=== PATIENT | male | born 1950 | race Caucasian/White ===

== ENCOUNTER 2019-09-16 11:33 | Emergency (ER) | payer MEDICARE, BC ==
[~2019-09-16] VITALS: Ht 182.9 cm; Wt 107.5 kg
[2019-09-16] MEDS ORDERED: LIDOCAINE 1% HCL (LOCAL ANESTH.) INJ 20ML MDV ONE (13:48)
[2019-09-16 14:06] LABS: Basophils # (auto) 0 10 ^3/uL (0-0.2); Basophils % (auto) 0.3 % (0.0-2.0); Eosinophils # (auto) 0.2 10 ^3/uL (0-0.8); Eosinophils % (auto) 2.1 % (0.0-7.0); Hematocrit 32.8 % (41.0-53.0); Hemoglobin 10.9 g/dL (13.5-17.5); Lymphocytes # (auto) 1.3 10 ^3/uL (0.4-5.4); Lymphocytes % (auto) 15.2 % (10.0-50.0); Mean Corpuscular Hgb Conc. 33.3 g/dL (32.0-36.0); Mean Corpuscular Volume 86.9 fL (80.0-100.0); Monocytes # (auto) 0.5 10 ^3/uL (0-1.3); Monocytes % (auto) 5.6 % (0.0-12.0); Neutrophils # (auto) 6.5 10 ^3/uL (1.6-8.6); Neutrophils % (auto) 76.8 % (37.0-80.0); Nucleated Red Blood Cells % 0.1 %; Platelet Count (auto) 234 10^3/uL (140-450); Red Blood Cells 3.78 10^6/uL (4.5-5.90); Red Cell Distribution Width 14.4 % (11.8-14.3); White Blood Cell 8.4 10^3/uL (4.4-10.8)
[2019-09-16 14:26] LABS: Alanine Aminotransferase 20 U/L (16-61); Albumin 4.2 g/dL (3.4-5.0); Blood Urea Nitrogen 47 mg/dL (7-18); Calcium 8.7 mg/dL (8.5-10.1); Carbon Dioxide 23 mmol/L (21-32); Glucose 137 mg/dL (74-106)
[2019-09-16 14:31] VITALS: BP 113/72
[2019-09-16 15:35] LABS: Alkaline Phosphatase 51 U/L (45-117); Anion Gap 8 (5-15); BUN/Creatinine Ratio 25.7; Chloride 105 mmol/L (98-107); GFR African American 48 mL/min; GFR Non-African American 40 mL/min; Potassium 4.3 mmol/L (3.5-5.1); Sodium 136 mmol/L (136-145)
[2019-09-16 15:36] LABS: Aspartate Aminotransferase 15 U/L (15-37); Bilirubin, Total 0.7 mg/dL (0.2-1.0); Total Protein 8.1 g/dL (6.4-8.2)
== END 2019-09-16 15:51 | disposition home or self-care (01) ==
LOC: ER 11:33
DX: S01.112A Laceration without foreign body of left eyelid and periocular area, initial encounter (principal); E11.9 Type 2 diabetes mellitus without complications; E78.5 Hyperlipidemia, unspecified; I10 Essential (primary) hypertension; R42 Dizziness and giddiness; X58.XXXA Exposure to other specified factors, initial encounter; Y93.89 Activity, other specified; Y92.89 Other specified places as the place of occurrence of the external cause; Y99.8 Other external cause status
CPT/HCPCS: 12013; 36415; 70450; 70486; 80053; 84484; 85025; 99285; J2001; 93005

== ENCOUNTER 2021-06-29 08:02 | Emergency (ER) | payer MEDICARE, BC ==
[~2021-06-29] VITALS: Ht 182.9 cm; Wt 117.9 kg
[2021-06-29 08:45] VITALS: BP 144/49
[2021-06-29] MEDS ORDERED: CLON0.2T PO (09:11)
== END 2021-06-29 09:19 | disposition home or self-care (01) ==
LOC: ER 08:02
DX: I10 Essential (primary) hypertension (principal); E11.9 Type 2 diabetes mellitus without complications; E78.5 Hyperlipidemia, unspecified; Z76.0 Encounter for issue of repeat prescription

== ENCOUNTER 2021-09-17 16:22 | Emergency (ER) | payer MEDICARE, BC ==
[~2021-09-17] VITALS: Ht 182.9 cm; Wt 90.7 kg
[~2021-09-17 16:22] MED LIST: CLON0.2T PO
[2021-09-17] MEDS ORDERED: CLON0.2T PO (16:54)
[2021-09-17 17:05] VITALS: BP 136/59
== END 2021-09-17 17:00 | disposition home or self-care (01) ==
LOC: ER 16:22
DX: I10 Essential (primary) hypertension (principal); Z76.0 Encounter for issue of repeat prescription

== ENCOUNTER → 2022-01-31 | Emergency (ER) | payer MEDICARE, BC ==
[~2022-01-31] VITALS: Ht 182.9 cm; Wt 270.0 kg
[~2022-01-31] MED LIST changes: +CLON0.2D6 PO; +cloNIDine HCL 0.1 MG TAB PO ONE
[2022-01-31 05:40] VITALS: BP 174/74
[2022-01-31 07:29] LABS: Basophils # (auto) 0.1 10 ^3/uL (0-0.2); Basophils % (auto) 0.9 % (0.0-2.0); Eosinophils # (auto) 0.2 10 ^3/uL (0-0.8); Eosinophils % (auto) 2.6 % (0.0-7.0); Hematocrit 33.4 % (41.0-53.0); Hemoglobin 11.5 g/dL (13.5-17.5); Lymphocytes # (auto) 2.1 10 ^3/uL (0.4-5.4); Lymphocytes % (auto) 27.6 % (10.0-50.0); Mean Corpuscular Hemoglobin 28.4 pg (28.0-32.0); Mean Corpuscular Hgb Conc. 34.3 g/dL (32.0-36.0); Mean Corpuscular Volume 82.7 fL (80.0-100.0); Monocytes # (auto) 0.5 10 ^3/uL (0-1.3); Monocytes % (auto) 6.3 % (0.0-12.0); Neutrophils # (auto) 4.7 10 ^3/uL (1.6-8.6); Neutrophils % (auto) 62.6 % (37.0-80.0); Red Blood Cells 4.04 10^6/uL (4.5-5.90); Red Cell Distribution Width 14.2 % (11.8-14.3); White Blood Cell 7.5 10^3/uL (4.4-10.8)
[2022-01-31 07:48] LABS: Albumin 3.8 g/dL (3.4-5.0); Calcium 8.8 mg/dL (8.5-10.1); Potassium 4.4 mmol/L (3.5-5.1)
[2022-01-31 07:51] LABS: BUN/Creatinine Ratio 27.6; Bilirubin, Total 0.7 mg/dL (0.2-1.0); Total Protein 7.3 g/dL (6.4-8.2)
== END | disposition home or self-care (01) ==
LOC: ER 05:40
DX: I10 Essential (primary) hypertension (principal); E11.65 Type 2 diabetes mellitus with hyperglycemia; E78.5 Hyperlipidemia, unspecified; Z79.899 Other long term (current) drug therapy
CPT/HCPCS: 36415; 80053; 84484; 85025

== ENCOUNTER 2022-07-25 08:54 | Inpatient (IN) | payer MEDICARE, BC ==
[~2022-07-25] VITALS: Ht 182.9 cm; Wt 130.0 kg
[~2022-07-25 08:54] MED LIST changes: -cloNIDine HCL 0.1 MG TAB PO ONE
[2022-07-25 09:45] LABS: Basophils # (auto) 0 10 ^3/uL (0-0.2); Basophils % (auto) 0.2 % (0.0-2.0); Eosinophils # (auto) 0.2 10 ^3/uL (0-0.8); Eosinophils % (auto) 2.7 % (0.0-7.0); Hematocrit 36.2 % (41.0-53.0); Lymphocytes # (auto) 1.7 10 ^3/uL (0.4-5.4); Lymphocytes % (auto) 19.4 % (10.0-50.0); Mean Corpuscular Hemoglobin 27.7 pg (28.0-32.0); Mean Corpuscular Hgb Conc. 33.1 g/dL (32.0-36.0); Mean Corpuscular Volume 83.7 fL (80.0-100.0); Monocytes # (auto) 0.6 10 ^3/uL (0-1.3); Monocytes % (auto) 6.9 % (0.0-12.0); Neutrophils # (auto) 6.1 10 ^3/uL (1.6-8.6); Neutrophils % (auto) 70.8 % (37.0-80.0); Nucleated Red Blood Cells % 0.1 %; Red Blood Cells 4.33 10^6/uL (4.5-5.90); Red Cell Distribution Width 14.9 % (11.8-14.3); White Blood Cell 8.5 10^3/uL (4.4-10.8)
[2022-07-25 10:07] LABS: Potassium 4.1 mmol/L (3.5-5.1)
[2022-07-25 10:19] LABS: Albumin 3.4 g/dL (3.4-5.0); BUN/Creatinine Ratio 18.6 (10.0-20.0); Bilirubin, Total 0.6 mg/dL (0.2-1.0); Calcium 9.5 mg/dL (8.5-10.1); Total Protein 8.3 g/dL (6.4-8.2)
[2022-07-25] MEDS ORDERED: CLINDAMYCIN 600MG IV 50 ML IV ONE (12:30)
[2022-07-25] MEDS ORDERED: PIPERACILLIN-TAZOB 3.375GM 100 ML IV ONE (12:30)
[2022-07-25] MEDS ORDERED: SODIUM CHLORIDE 0.9% 1,000 ML IV SCH (14:00)
[2022-07-25] MEDS ORDERED: DEXTROSE (50%) 50ML SYRG IV PRN (14:00)
[2022-07-25] MEDS ORDERED: VANCOMYCIN PER PHARMACY 0 MG IV SCH (14:00)
[2022-07-25] MEDS ORDERED: ACETAMINOPHEN 325 MG TAB PO PRN (14:00)
[2022-07-25] MEDS ORDERED: hydrALAZINE HCL 20 MG/ML VL IV PRN (14:30)
[2022-07-25 14:47] LABS: Cholesterol 258 mg/dL (< 200); HDL Cholesterol 51 mg/dL (40-59); LDL Cholesterol 166 mg/dL (< 100); Triglycerides 252 mg/dL (< 150)
[2022-07-25] MEDS ORDERED: CLINDAMYCIN HCL 150 MG CAP PO ONE (15:45)
[2022-07-25] MEDS ORDERED: VANCOMYCIN 1GM/250ML 250 ML IV SCH (16:00)
[2022-07-25 16:20] VITALS: BP 176/85
[2022-07-25] MEDS ORDERED: ACCU-CHEK COMFORT CURVE STRIP VI SCH (17:00)
[2022-07-25] MEDS ORDERED: InsuLIN REG 1unit/0.01ml Soln (100units/ml) SC SCH (17:00)
[2022-07-25] MEDS ORDERED: ASCORBIC ACID 500 MG TAB PO SCH (22:00)
[2022-07-25] MEDS ORDERED: PIPERACILLIN-TAZOB 3.375GM 100 ML IV SCH (22:00)
[2022-07-25] MEDS ORDERED: cloNIDine HCL 0.1 MG TAB PO SCH (22:00)
[2022-07-26] MEDS ORDERED: MULTIPLE VITAMIN TAB PO SCH (10:00)
[2022-07-26] MEDS ORDERED: ZINC SULFATE 220mg CAP or TAB PO SCH (10:00)
[2022-07-26] MEDS ORDERED: ENOXAPARIN SOD 40 MG/0.4 ML SYRINGE SC SCH (10:00)
== END 2022-07-26 00:26 | disposition left against medical advice (07) | DRG 638 ==
LOC: ER 08:54 → OVERFLOW 14:05
PROVIDERS: ADMIT Nurse Practitioner Family; ATTEND Nurse Practitioner Family
DX: E11.622 Type 2 diabetes mellitus with other skin ulcer (principal); L03.116 Cellulitis of left lower limb; L97.929 Non-pressure chronic ulcer of unspecified part of left lower leg with unspecified severity; N17.9 Acute kidney failure, unspecified; E11.65 Type 2 diabetes mellitus with hyperglycemia; E66.01 Morbid (severe) obesity due to excess calories; E78.5 Hyperlipidemia, unspecified; I10 Essential (primary) hypertension; Z68.38 Body mass index [BMI] 38.0-38.9, adult; Z90.5 Acquired absence of kidney; Z79.899 Other long term (current) drug therapy
CPT/HCPCS: 36415; 80053; 80061; 82962; 83036; 83880; 83930; 84443; 85025; 87040; 93970; G0378; J1815; J2543

== ENCOUNTER 2022-07-28 14:06 | Inpatient (IN) | payer MEDICARE, BC ==
[~2022-07-28] VITALS: Ht 182.9 cm; Wt 127.8 kg
[2022-07-28 15:31] LABS: Basophils # (auto) 0 10 ^3/uL (0-0.2); Basophils % (auto) 0.3 % (0.0-2.0); Eosinophils # (auto) 0.2 10 ^3/uL (0-0.8); Eosinophils % (auto) 2.8 % (0.0-7.0); Hematocrit 35.8 % (41.0-53.0); Hemoglobin 11.7 g/dL (13.5-17.5); Lymphocytes # (auto) 2.5 10 ^3/uL (0.4-5.4); Lymphocytes % (auto) 29.2 % (10.0-50.0); Mean Corpuscular Hemoglobin 27.4 pg (28.0-32.0); Mean Corpuscular Hgb Conc. 32.6 g/dL (32.0-36.0); Monocytes # (auto) 0.5 10 ^3/uL (0-1.3); Monocytes % (auto) 6.1 % (0.0-12.0); Neutrophils # (auto) 5.2 10 ^3/uL (1.6-8.6); Neutrophils % (auto) 61.6 % (37.0-80.0); Nucleated Red Blood Cells % 0.1 %; Red Blood Cells 4.26 10^6/uL (4.5-5.90); Red Cell Distribution Width 15.1 % (11.8-14.3); White Blood Cell 8.5 10^3/uL (4.4-10.8)
[2022-07-28 15:59] LABS: Albumin 3.5 g/dL (3.4-5.0); BUN/Creatinine Ratio 17.6 (10.0-20.0); Potassium 4.6 mmol/L (3.5-5.1)
[2022-07-28 16:08] LABS: Bilirubin, Total 0.4 mg/dL (0.2-1.0); CRP High Sensitivity 1.31 mg/dL (< 0.3); Total Protein 7.3 g/dL (6.4-8.2)
[2022-07-28] MEDS ORDERED: VANCOMYCIN PER PHARMACY 0 MG IV SCH ×2 (17:00→18:15)
[2022-07-28] MEDS ORDERED: VANCOMYCIN 1GM/250ML 250 ML IV ONE (17:15)
[2022-07-28] MEDS ORDERED: DOCUSATE SOD 100 MG CAP PO PRN (18:15)
[2022-07-28] MEDS ORDERED: MORPHINE SULFATE INJ 2 MG/ml SYRG IV PRN (18:15)
[2022-07-28] MEDS ORDERED: ONDANSETRON HCL 4 MG/2 ML VIAL IV PRN (18:15)
[2022-07-28] MEDS ORDERED: DEXTROSE (50%) 50ML SYRG IV PRN (18:15)
[2022-07-28] MEDS ORDERED: CEFEPIME 2 GM in SODIUM CHL 0.9% 50 ML IV SCH (18:33)
[2022-07-28] MEDS ORDERED: POM BC (22:16)
[2022-07-28] MEDS ORDERED: SERT-376 PO (22:18)
[2022-07-28] MEDS: hydrALAZINE HCL 20 MG/ML VL IV PRN (22:22)
[2022-07-28] MEDS: SODIUM CHLORIDE 0.9% 1,000 ML IV SCH (22:48)
[2022-07-28] MEDS: ACCU-CHEK COMFORT CURVE STRIP VI SCH (22:54)
[2022-07-28] MEDS: InsuLIN REG 1unit/0.01ml Soln (100units/ml) SC SCH (22:56)
[2022-07-29] MEDS ORDERED: CEFEPIME 2 GM in SODIUM CHL 0.9% 50 ML IV SCH ×2
[2022-07-29 00:05] VITALS: BP 183/75
[2022-07-29] MEDS: SODIUM CHLORIDE 0.9% 1,000 ML IV SCH ×3 (02:35→18:46)
[2022-07-29 04:47] LABS: Creatinine, Urine 24 mg/dL (30.0-125.0); Sodium Urine 117 mmol/L (40-220)
[2022-07-29 05:00] VITALS: BP 157/73
[2022-07-29] MEDS: hydrALAZINE HCL 20 MG/ML VL IV PRN ×2 (05:29→20:30)
[2022-07-29 05:56] LABS: Basophils # (auto) 0 10 ^3/uL (0-0.2); Basophils % (auto) 0.3 % (0.0-2.0); Eosinophils # (auto) 0.2 10 ^3/uL (0-0.8); Eosinophils % (auto) 3.4 % (0.0-7.0); Hematocrit 36.2 % (41.0-53.0); Hemoglobin 12.2 g/dL (13.5-17.5); Lymphocytes # (auto) 1.8 10 ^3/uL (0.4-5.4); Lymphocytes % (auto) 26.2 % (10.0-50.0); Mean Corpuscular Hemoglobin 27.9 pg (28.0-32.0); Mean Corpuscular Hgb Conc. 33.7 g/dL (32.0-36.0); Mean Corpuscular Volume 82.8 fL (80.0-100.0); Monocytes # (auto) 0.5 10 ^3/uL (0-1.3); Monocytes % (auto) 6.8 % (0.0-12.0); Neutrophils # (auto) 4.3 10 ^3/uL (1.6-8.6); Neutrophils % (auto) 63.3 % (37.0-80.0); Nucleated Red Blood Cells % 0.1 %; Red Blood Cells 4.38 10^6/uL (4.5-5.90); Red Cell Distribution Width 14.8 % (11.8-14.3); White Blood Cell 6.7 10^3/uL (4.4-10.8)
[2022-07-29 06:26] LABS: Albumin 3.6 g/dL (3.4-5.0); BUN/Creatinine Ratio 18.6 (10.0-20.0); Bilirubin, Total 0.5 mg/dL (0.2-1.0); Calcium 9.5 mg/dL (8.5-10.1); Total Protein 7.8 g/dL (6.4-8.2)
[2022-07-29] MEDS: ACCU-CHEK COMFORT CURVE STRIP VI SCH ×4 (06:30→21:30)
[2022-07-29] MEDS: InsuLIN REG 1unit/0.01ml Soln (100units/ml) SC SCH ×4 (06:31→21:31)
[2022-07-29] MEDS: METHADONE 130 MG PO SCH (07:02)
[2022-07-29 08:00] VITALS: BP 159/73
[2022-07-29] MEDS: SERTRALINE HCL 50 MG TAB PO SCH (10:25)
[2022-07-29] MEDS: ENOXAPARIN SOD 40 MG/0.4 ML SYRINGE SC SCH (10:26)
[2022-07-29] MEDS ORDERED: cefTRIAXone 1GM/50ML D5W 50 ML IV ONE (11:30)
[2022-07-29 12:00] VITALS: BP 135/67
[2022-07-29] MEDS ORDERED: cloNIDine HCL 0.1 MG TAB PO PRN (12:45)
[2022-07-29] MEDS: VANCOMYCIN 1GM/250ML 250 ML IV SCH (13:32)
[2022-07-29 16:00] VITALS: BP 156/77
[2022-07-29] MEDS: cloNIDine HCL 0.1 MG TAB PO SCH ×2 (18:22→23:46)
[2022-07-29 22:00] VITALS: BP 154/62
[2022-07-30] MEDS: VANCOMYCIN 1GM/250ML 250 ML IV SCH ×2 (03:23→16:51)
[2022-07-30] MEDS: SODIUM CHLORIDE 0.9% 1,000 ML IV SCH ×3 (03:35→20:15)
[2022-07-30 05:00] VITALS: BP 161/71
[2022-07-30] MEDS: METHADONE 130 MG PO SCH (05:07)
[2022-07-30] MEDS: hydrALAZINE HCL 20 MG/ML VL IV PRN (05:08)
[2022-07-30] MEDS: cloNIDine HCL 0.1 MG TAB PO SCH ×3 (06:05→16:51)
[2022-07-30] MEDS: ACCU-CHEK COMFORT CURVE STRIP VI SCH ×4 (06:11→22:00)
[2022-07-30] MEDS: InsuLIN REG 1unit/0.01ml Soln (100units/ml) SC SCH ×4 (06:13→22:43)
[2022-07-30 08:00] VITALS: BP 130/80
[2022-07-30] MEDS: ENOXAPARIN SOD 40 MG/0.4 ML SYRINGE SC SCH (09:37)
[2022-07-30] MEDS: SERTRALINE HCL 50 MG TAB PO SCH (09:37)
[2022-07-30] MEDS: cefTRIAXone 1GM/50ML D5W 50 ML IV SCH (09:38)
[2022-07-30 12:00] VITALS: BP 147/77
[2022-07-30 16:00] VITALS: BP 139/75
[2022-07-30 22:00] VITALS: BP 137/55
[2022-07-31] MEDS: cloNIDine HCL 0.1 MG TAB PO SCH ×2 (00:39→06:43)
[2022-07-31] MEDS: SODIUM CHLORIDE 0.9% 1,000 ML IV SCH (04:35)
[2022-07-31 05:00] VITALS: BP 159/76
[2022-07-31] MEDS: METHADONE 130 MG PO SCH (05:00)
[2022-07-31] MEDS: VANCOMYCIN 1GM/250ML 250 ML IV SCH (06:41)
[2022-07-31] MEDS: ACCU-CHEK COMFORT CURVE STRIP VI SCH ×2 (06:43→11:30)
[2022-07-31] MEDS: InsuLIN REG 1unit/0.01ml Soln (100units/ml) SC SCH ×2 (06:44→11:30)
[2022-07-31 08:15] VITALS: BP 147/69
[2022-07-31] MEDS: cefTRIAXone 1GM/50ML D5W 50 ML IV SCH (09:00)
[2022-07-31] MEDS: ENOXAPARIN SOD 40 MG/0.4 ML SYRINGE SC SCH (10:00)
[2022-07-31] MEDS: SERTRALINE HCL 50 MG TAB PO SCH (10:00)
== END 2022-07-31 09:57 | disposition left against medical advice (07) | DRG 603 ==
LOC: ER 14:06 → OVERFLOW 18:11 → CENTRAL 22:05
PROVIDERS: ADMIT Nurse Practitioner Family; ATTEND Family Medicine
DX: L03.116 Cellulitis of left lower limb (principal); L97.929 Non-pressure chronic ulcer of unspecified part of left lower leg with unspecified severity; N17.9 Acute kidney failure, unspecified; E78.00 Pure hypercholesterolemia, unspecified; D64.9 Anemia, unspecified; R70.0 Elevated erythrocyte sedimentation rate; R79.82 Elevated C-reactive protein (CRP); E78.5 Hyperlipidemia, unspecified; E11.9 Type 2 diabetes mellitus without complications; I10 Essential (primary) hypertension; Z53.29 Procedure and treatment not carried out because of patient's decision for other reasons; Z91.199 Patient's noncompliance with other medical treatment and regimen due to unspecified reason; Z85.528 Personal history of other malignant neoplasm of kidney; Z90.5 Acquired absence of kidney
CPT/HCPCS: 36415; 73590; 80053; 80202; 82570; 82962; 83605; 84300; 84484; 85025; 85652; 86141; 87040; 93971; 96365; 96367; G0378; J0696; J1815